=== PATIENT | female | born 1960 | race American Indian/Alaskan Native ===

== ENCOUNTER 2022-01-08 23:57 | Emergency (ER) | payer MEDICAID ==
--- NOTE | 2022-01-09 03:24 | Emergency Department Report ---
ED General Adult HPI - General Chief complaint: High BP Stated complaint: HYPERTENSION PUI?: No Time Seen by Provider: 01/09/22 03:21 Source: patient, EMS Mode of arrival: Stretcher Limitations: Altered Mental Status, Physical Limitation - History of Present Illness Initial comments: This is a 61-year-old female brought in by daughter with concerns of elevated blood pressure and generalized abdominal discomfort with poor bowel movement. According to daughter mother has had 3 strokes and has a G-tube as she cannot swallow. Patient denies any other discomfort. According to the daughter the blood pressure was elevated 190s over 110. Patient herself denies any discomfort denies chest pain lightheadedness headache. Patient daughter said that she had appendectomy in the past. Daughter also mention that the mother is on chronic opioid medication. - Related Data Previous Rx's Medication Instructions Recorded Last Taken Type Methylnaltrexone [place] [Relistor] 450 mg PO QAM 5 Days #5 01/09/22 Unknown Rx RX: Simethicone [Bicarsim Forte] 125 mg PO QAM 5 Days #5 tab 01/09/22 Unknown Rx Allergies Allergy/AdvReac Type Severity Reaction Status Date / Time Penicillins Allergy Hives Verified 01/09/22 03:19 ED Review of Systems ROS: Stated complaint: HYPERTENSION Other details as noted in HPI Comment: All other systems reviewed and negative Constitutional: no symptoms reported Eyes: as per HPI ENT: as per HPI Respiratory: no symptoms reported, see HPI Cardiovascular: as per HPI Endocrine: no symptoms reported, see HPI Gastrointestinal: abdominal pain (NOT PAIN BUT RIGHT LOWER QUADRANT DISCOMFORT) ED Past Medical Hx - Past Medical History Previous Medical History?: Yes Hx Hypertension: Yes Hx CVA: Yes Hx Renal Disease: Yes Additional medical history: Incontinent. - Surgical History Past Surgical History?: No - Social History Smoking Status: Never Smoker Substance Use Type: None - Medications Home Medications: Home Medications Medication Instructions Recorded Confirmed Last Taken Type Methylnaltrexone [place] [Relistor] 450 mg PO QAM 5 Days #5 01/09/22 Unknown Rx RX: Simethicone [Bicarsim Forte] 125 mg PO QAM 5 Days #5 tab 01/09/22 Unknown Rx ED Physical Exam - General Limitations: Altered Mental Status, Physical Limitation General appearance: alert, in no apparent distress - Head Head exam: Present: atraumatic, normocephalic, normal inspection - Eye Eye exam: Present: normal appearance, PERRL, EOMI Pupils: Present: normal accommodation - ENT ENT exam: Present: normal exam, mucous membranes moist - Neck Neck exam: Present: normal inspection, full ROM - Respiratory Respiratory exam: Present: normal lung sounds bilaterally. Absent: respiratory distress, wheezes, rales, rhonchi - Cardiovascular Cardiovascular Exam: Present: regular rate, normal rhythm, normal heart sounds - GI/Abdominal GI/Abdominal exam: Present: soft. Absent: distended, tenderness, guarding, rebound, rigid - Extremities Exam Extremities exam: Present: normal inspection, full ROM, normal capillary refill - Back Exam Back exam: Present: normal inspection, full ROM - Neurological Exam Neurological exam: Present: alert, altered, oriented X3 - Psychiatric Psychiatric exam: Present: normal affect, normal mood - Skin Skin exam: Present: normal color ED Course Vital Signs 01/08/22 23:57 Temperature 99.4 F Pulse Rate 96 H Respiratory 18 Rate Blood Pressure 149/102 O2 Sat by Pulse 96 Oximetry - Reevaluation(s) Reevaluation #1: 01/09/22 04:47 I HAVE SPOKEN TO PHARMACIST WHO STATES WE DO NOT HAVE ANY MEDICATION FOR OPIOID- INDUCED CONSTIPATION SUCH AMITIZA, RELISTOR, SYMPROIC, ETC. THEREFORE, I WILL GIVE SOME OTHER BOWEL MOVEMENT REGIMEN IN THE ER AND THEN D/C PATIENT ON PRESCRIPTION OF THOSE MEDICATION. Reevaluation #2: 01/09/22 04:52 DAUGHTER INFORMED TO CRUSH RELISTOR AND SIMETHICONE AND INSTALL IT IN PEG TUBE DAILY FOR THE NEXT 5 DAYS; INFORMED TO FOLLOW UP WITH PCP WITHIN 2 DAYS. Critical care attestation.: If time is entered above; I have spent that time in minutes in the direct care of this critically ill patient, excluding procedure time. ED Disposition Clinical Impression: Therapeutic opioid-induced constipation (OIC), Elevated blood pressure reading Disposition: 01 HOME / SELF CARE / HOMELESS Is pt being admited?: No Does the pt Need Aspirin: No Condition: Stable Instructions: Constipation, Adult Prescriptions: RX: Simethicone [Bicarsim Forte] 125 mg PO QAM 5 Days #5 tab Methylnaltrexone [place] [Relistor] 450 mg PO QAM 5 Days #5 Time of Disposition: 04:51
--- NOTE | 2022-01-09 04:09 | XRay Report ---
. ABDOMEN 1 VIEW 01/09/2022 INDICATION / CLINICAL INFORMATION: POOR BOWEL MOVEMENT; VAG ABD DISCOMFORT. COMPARISON: None available. FINDINGS: TUBES / LINES: Gastrostomy tube is noted overlying the left upper quadrant. BOWEL GAS PATTERN: No significant abnormality. FREE AIR / EXTRALUMINAL GAS: None seen. ADDITIONAL FINDINGS: High density stool is noted throughout the colon, most pronounced in the rectum where there is a large high density stool ball measuring up to 10.8 cm. IMPRESSION: 1. High density stool noted throughout the colon most pronounced the rectum where there is a large hi gh density stool ball measuring up to 10.8 cm. Signer Name: Eleuterio Horn DO Signed: 01/09/2022 4:05 AM Workstation Name: [id number]
[2022-01-09] MEDS ORDERED: LACTULOSE ENEMA 1000 ML PR PRN (04:24)
[2022-01-09] MEDS ORDERED: SENNOSIDES/DOCUSATE SODIUM 8.6/50 MG TAB PO ONE (04:26)
[2022-01-09] MEDS ORDERED: SIMETHICONE 40 MG/0.6 ML ORAL DROP 30ML PO ONE (04:27)
[2022-01-09] MEDS ORDERED: FLEET ENEMA PR ONE (04:27)
[2022-01-09] MEDS ORDERED: LACTULOSE 20 GM/30 ML ORAL LIQD PO ONE (04:35)
[2022-01-09 13:57] VITALS: BP 146/80
== END 2022-01-09 16:07 | disposition home or self-care (01) ==
LOC: ED 23:57
DX: I10 Essential (primary) hypertension (principal); K59.03 Drug induced constipation; N28.9 Disorder of kidney and ureter, unspecified; Z86.73 Personal history of transient ischemic attack (TIA), and cerebral infarction without residual deficits; Z88.0 Allergy status to penicillin; Z79.899 Other long term (current) drug therapy
CPT/HCPCS: 74018; 99284